=== PATIENT | female | born 1995 | race Caucasian/White ===

== ENCOUNTER 2019-07-28 23:14 | Emergency (ER) | payer OTHER ==
[2019-07-29] MEDS: Ketorolac 30 MG/ML SDV IM ONE (01:25)
[2019-07-29] MEDS: Diazepam 5 MG Tab PO ONE (01:26)
--- NOTE | 2019-07-29 03:28 | EDM.PDOC ---
ED HPI GENERAL MEDICAL PROBLEM - General Chief Complaint: General Stated Complaint: PAIN IN SI JOINTS Time Seen by Provider: 07/29/19 01:12 Source of Information: Reports: Patient, Correction Records History Limitations: Reports: No Limitations - History of Present Illness INITIAL COMMENTS - FREE TEXT/NARRATIVE: This 23-year-old female presents to the emergency room with a chief complaint of pain in her SI joint. Patient has had pain for a few days and is in severe pain at this time. Onset: Gradual Duration: Day(s):, Getting Worse Location: Reports: Back Severity: Moderate Improves with: Reports: None Worsens with: Reports: None Associated Symptoms: Reports: No Other Symptoms Generalized Pain Score (Numeric/FACES): 8 - Related Data Allergies Allergy/AdvReac Type Severity Reaction Status Date / Time sulfamethoxazole Allergy Hives Verified 07/28/19 23:29 [From Bactrim] trimethoprim [From Bactrim] Allergy Hives Verified 07/28/19 23:29 Home Meds: Home Meds Diclofen Sod/Kinesiology Tape [Diclo Gel 1%-Xrylix Sheet Kit] 1 each TP ASDIRECTED 07/28/19 [History] Methocarbamol 750 mg PO TID 07/28/19 [History] Past Medical History Cardiovascular History: Reports: None Respiratory History: Reports: None Gastrointestinal History: Reports: None Genitourinary History: Reports: None 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 Neurological History: Reports: None Psychiatric History: Reports: None Endocrine/Metabolic History: Reports: None Hematologic History: Reports: None Immunologic History: Reports: None Oncologic (Cancer) History: Reports: None Dermatologic History: Reports: None - Past Surgical History Head Surgeries/Procedures: Reports: None HEENT Surgical History: Reports: Oral Surgery Other HEENT Surgeries/Procedures: wisdom teeth Other Musculoskeletal Surgeries/Procedures:: SI joint Social & Family History - Tobacco Use Smoking Status *Q: Never Smoker Second Hand Smoke Exposure: No - Caffeine Use Caffeine Use: Reports: None - Recreational Drug Use Recreational Drug Use: No ED ROS GENERAL - Review of Systems Review Of Systems: Comprehensive ROS is negative, except as noted in HPI. Constitutional: Reports: No Symptoms HEENT: Reports: No Symptoms Respiratory: Reports: No Symptoms Cardiovascular: Reports: No Symptoms Endocrine: Reports: No Symptoms GI/Abdominal: Reports: No Symptoms : Reports: No Symptoms Musculoskeletal: Reports: Muscle Pain Skin: Reports: No Symptoms Neurological: Reports: No Symptoms Psychiatric: Reports: No Symptoms Hematologic/Lymphatic: Reports: No Symptoms Immunologic: Reports: No Symptoms ED EXAM, GENERAL - Physical Exam Exam: See Below Free Text/Narrative:: sHe has point tenderness no signs of redness or infection Exam Limited By: No Limitations General Appearance: Alert, WD/WN, No Apparent Distress Ears: Normal Canal, Hearing Grossly Normal, Normal TMs Nose: Normal Inspection, Normal Mucosa, No Blood Throat/Mouth: Normal Inspection, Normal Lips, Normal Teeth, Normal Gums, Normal Oropharynx, Normal Voice Head: Atraumatic, Normocephalic Neck: Normal Inspection, Supple, Non-Tender, Full Range of Motion Respiratory/Chest: No Respiratory Distress, Lungs Clear, Normal Breath Sounds, No Accessory Muscle Use, Chest Non-Tender Cardiovascular: Normal Peripheral Pulses, Regular Rate, Rhythm, No Edema, No Gallop, No JVD, No Murmur, No Rub GI/Abdominal: Normal Bowel Sounds, Soft (Female) Exam: Deferred Rectal (Female) Exam: Deferred Back Exam: Normal Inspection, Decreased Range of Motion, Muscle Spasm, Paraspinal Tenderness, Vertebral Tenderness Extremities: Normal Inspection, Normal Range of Motion, Non-Tender, No Pedal Edema Neurological: Alert, Oriented, CN II-XII Intact, Normal Cognition, Normal Gait, Normal Reflexes Psychiatric: Normal Affect, Normal Mood Skin Exam: Warm, Dry, Intact, Normal Color, No Rash Lymphatic: No Adenopathy Course - Vital Signs Last Recorded V/S: Last Vital Signs Temp 97.8 F 07/28/19 23:24 Pulse 94 07/28/19 23:24 Resp 20 07/28/19 23:24 BP 151/71 H 07/28/19 23:24 Pulse Ox 98 07/28/19 23:24 - Orders/Labs/Meds Meds: Medications Discontinued Medications Generic Name Dose Route Start Last Admin Trade Name Adithyaq PRN Reason Stop Dose Admin Diazepam 10 mg 07/29/19 01:16 07/29/19 01:26 Valium. PO 07/29/19 01:17 10 mg ONETIME ONE Administration Ketorolac Tromethamine 30 mg 07/29/19 01:16 07/29/19 01:25 Toradol IM 07/29/19 01:17 30 mg ONETIME ONE Administration Departure - Departure Time of Disposition: 03:29 Disposition: Home, Self-Care 01 Condition: Good Clinical Impression: Back pain - Discharge Information Instructions: Radicular Pain Referrals: Adán Montanez DO [Primary Care Provider] - Forms: ED Department Discharge Sepsis Event Note - Evaluation Sepsis Screening Result: No Definite Risk - Focused Exam Vital Signs: Vital Signs Temp Pulse Resp BP Pulse Ox 07/28/19 23:24 97.8 F 94 20 151/71 H 98 Date Exam was Performed: 07/29/19 Time Exam was Performed: 03:29
== END 2019-07-29 03:40 | disposition home or self-care (01) ==
LOC: MW.ED 23:14
DX: M53.3 Sacrococcygeal disorders, not elsewhere classified (principal); Z88.2 Allergy status to sulfonamides; Z88.1 Allergy status to other antibiotic agents
CPT/HCPCS: 96372; 99283; A9270; J1885; 99282

== ENCOUNTER 2019-08-13 10:41 | Day surgery (SDC) | payer BC, OTHER ==
[~2019-08-13 10:41] MED LIST: Betamethasone Acetate/Betamethasone Sod Phosphate 30 MG/5 ML MDV EPIDUR ONE; Iopamidol 200-M 10 ML vial ITHECAL ONE; Lidocaine 2% 5 ML SDV INJECT ONE; Ropivacaine 0.5% 5 MG/ML 30 ML SDV INJECT ONE
--- NOTE | 2019-08-13 19:32 | OR ---
SURGEON: Aracely Nieves D.O. DATE OF PROCEDURE: 08/13/2019 PRIMARY SURGEON: Aracely Nieves D.O. SAP PORTAL DEVELOPER: OR staff present: 1. Shana Huertas RN. 2. Marilia Morillo RN. 3. RT Simona. WOUND CLASS: I. PREOPERATIVE DIAGNOSES: 1. Bilateral sacroiliac joint arthropathy. 2. Bilateral sacroiliac joint dysfunction. POSTOPERATIVE DIAGNOSES: 1. Bilateral sacroiliac joint arthropathy. 2. Bilateral sacroiliac joint dysfunction. PROCEDURE PERFORMED: 1. Right sacroiliac joint injection. 2. Left sacroiliac joint injection. 3. Fluoroscopic guidance for needle placement. 4. Local with oral Valium for sedation. SCREENING QUESTIONS: The patient answered "No" to all the followin. Are you allergic to iodine, Betadine or latex? 2. Do you have a bleeding disorder? 3. Do you have any joint replacements, heart valve replacements or a pacemaker? 4. Are you on any anti-inflammatories or blood thinners? 5. Do you have any current local or systemic infections? MEDICAL NECESSITY: This is a patient with a history of severe chronic low back pain and sacroiliac joint irritation with pain over the sacral sulcus and the buttocks region who comes in for the above diagnostic and therapeutic procedure. Please see medical necessity note attached. This procedure is being done in accordance with guidelines as written by the [employer] (HARI). DESCRIPTION OF PROCEDURE: The patient had the procedure thoroughly explained including all possible risks, benefits and alternatives. Consent was signed in my clinic indicating understanding and willingness to proceed. The patient presented to the outpatient Surgery Center and was escorted to the dressing room to disrobe and change into a hospital gown. Preoperative vital signs were taken and stable. The patient reported that Valium was taken prior to the procedure. The patient was brought to the procedure room and placed in the prone position on the procedure room table. A pillow was placed under the hips in order to flatten the lumbar lordosis. The back was prepped with ChloraPrep and sterilely draped. All personnel in the operating room were dressed in appropriate attire including surgical scrubs, head and shoe covers. This was to ensure sterility while in the treatment room. During the time fluoroscopy was in use all personnel in the operating room wore lead ragsdale with thyroid collars. Sterile technique was used during the procedure. The patient was awake and conversant throughout the procedure. The fluoroscope was positioned to provide an oblique view of the left sacroiliac joint. There was no evidence of infection at the site of needle insertion. The skin was anesthetized with 2% Lidocaine with a sterile 27-gauge 1.5 inch needle. Then under fluoroscopy a 22-gauge 3.5 inch spinal needle was placed within the sacroiliac joint in the lower one-third of the joint. IsoVue-200 contrast dye was injected under live fluoroscopy and no intravascular flow pattern was observed. After negative aspiration of heme, the following solution was injected: 0.5% Ropivacaine, Celestone and 2% Lidocaine. The procedure was then repeated as above for the right sacroiliac joint injection The patient tolerated the procedures well and vital signs were stable during and after the procedure. The staff escorted the patient to the recovery area and the patient was released to home in stable condition after a brief stay in the recovery room monitored by the nurse. The patient was given both oral and written discharge and follow up instructions. Recommended follow up in two weeks. The patient is able to contact the office if there are any additional problems or questions in the meantime. The patient was given discharge instruction and verbalizes understanding including understanding of those signs and symptoms that would require emergency care. PREOPERATIVE PAIN: 8/10. POSTOPERATIVE PAIN: 2/10. FOLLOWUP: Follow up in the Pain Clinic in 3 to 4 weeks. HOGCHARLIE / LORENA /[id number]
== END 2019-08-13 13:00 | disposition home or self-care (01) ==
LOC: MW.SDS 10:41
PROVIDERS: ATTEND Anesthesiology
DX: M47.818 Spondylosis without myelopathy or radiculopathy, sacral and sacrococcygeal region (principal); M53.3 Sacrococcygeal disorders, not elsewhere classified; G89.29 Other chronic pain; M54.9 Dorsalgia, unspecified; M54.6 Pain in thoracic spine; M79.18 Myalgia, other site; G47.33 Obstructive sleep apnea (adult) (pediatric); F41.9 Anxiety disorder, unspecified; E66.01 Morbid (severe) obesity due to excess calories; Z68.43 Body mass index [BMI] 50.0-59.9, adult; Z91.040 Latex allergy status; Z88.8 Allergy status to other drugs, medicaments and biological substances
CPT/HCPCS: 27096; J0702; G0260

== ENCOUNTER 2021-05-20 06:23 | Day surgery (SDC) | payer BC ==
[~2021-05-20 06:23] MED LIST changes: -Betamethasone Acetate/Betamethasone Sod Phosphate 30 MG/5 ML MDV EPIDUR ONE; -Iopamidol 200-M 10 ML vial ITHECAL ONE; +Lactated Ringers 1,000 ML IV SCH; -Lidocaine 2% 5 ML SDV INJECT ONE; -Ropivacaine 0.5% 5 MG/ML 30 ML SDV INJECT ONE; +Sodium Chloride 0.9% 10 ML SDV IV PRN; +Sodium Chloride 0.9% 10 ML Syringe FLUSH PRN; +Sodium Chloride 0.9% 2.5 ML Syringe FLUSH PRN; +ceFAZolin 2 GM in Premix Bag 1 BAG IV ONE
[2021-05-20] MEDS ORDERED: Scopolamine 1.5 MG Transdermal Patch ONE (07:07)
[2021-05-20] MEDS ORDERED: Metoclopramide 10 MG/2 ML SDV IVPUSH PRN (07:18)
[2021-05-20] MEDS ORDERED: Albuterol 0.083% 2.5 MG/3 ML Neb Soln NEB PRN (07:18)
[2021-05-20] MEDS ORDERED: HYDROmorphone 1 MG/ML Syringe IVPUSH PRN (07:18)
[2021-05-20] MEDS ORDERED: fentaNYL 100 MCG/2 ML SDV IVPUSH PRN (07:18)
[2021-05-20] MEDS ORDERED: Naloxone 0.4 MG/ML SDV IVPUSH PRN (07:18)
[2021-05-20] MEDS ORDERED: Ondansetron 4 MG/2 ML SDV IVPUSH PRN (07:18)
[2021-05-20] MEDS ORDERED: Morphine 2 MG/ML SYRINGE IVPUSH PRN (07:18)
--- NOTE | 2021-05-20 07:20 | PCM.PREANE ---
Preanesthetic Assessment - Anesthesia/Transfusion/Family Hx Anesthesia History: Prior Anesthesia Without Reaction Other Type of Anesthesia Reaction Comment: states after one of my c/sections, the epidural wore off quickly Family History of Anesthesia Reaction: No Transfusion History: No Prior Transfusion(s) - Review of Systems General: No Symptoms Pulmonary: No Symptoms Cardiovascular: No Symptoms Gastrointestinal: No Symptoms Neurological: No Symptoms Other: Reports: None, Anxiety - Physical Assessment NPO Status Date: 05/20/21 NPO Status Time: 00:00 Vital Signs: Last Vital Signs Temp 98.1 F 05/20/21 06:35 Pulse 72 05/20/21 06:35 Resp 16 05/20/21 06:35 BP 112/65 05/20/21 06:35 Pulse Ox 99 05/20/21 06:35 Height: 5 ft 6 in Weight: 174 lb ASA Class: 2 Mental Status: Alert & Oriented x3 Airway Class: Mallampati = 2 Dentition: Reports: Normal Dentition Thyro-Mental Finger Breadths: 3 Mouth Opening Finger Breadths: 3 ROM/Head Extension: Full Lungs: Clear to Auscultation, Normal Respiratory Effort Cardiovascular: Regular Rate, Regular Rhythm - Lab Values: Laboratory Last Values Urine HCG, Qual NEGATIVE (NEGATIVE) 05/20/21 06:35 - Allergies Allergies/Adverse Reactions: Allergies Allergy/AdvReac Type Severity Reaction Status Date / Time latex Allergy reddness, Verified 05/14/21 10:57 couldnt take deep breath sulfamethoxazole Allergy Rash Verified 05/14/21 10:57 [From Bactrim] trimethoprim [From Bactrim] Allergy Rash Verified 05/14/21 10:57 - Acknowledgements Anesthesia Type Planned: General Anesthesia Pt an Appropriate Candidate for the Planned Anesthesia: Yes Alternatives and Risks of Anesthesia Discussed w Pt/Guardian: Yes Pt/Guardian Understands and Agrees with Anesthesia Plan: Yes PreAnesthesia Questionnaire HEENT History: Reports: None Cardiovascular History: Reports: None Respiratory History: Reports: Other (See Below) Other Respiratory History: sleep apnea in the past, not since weight loss Gastrointestinal History: Reports: Celiac Disease, GERD Other Gastrointestinal History: hx pilonidal cyst, fatty liver in the past Genitourinary History: Reports: None 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: Musculoskeletal History: Reports: Back Pain, Chronic, Fracture, Neck Pain, Chronic Other Musculoskeletal History: hx fx tailbone Neurological History: Reports: Other (See Below) Other Neuro History: "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" Psychiatric History: Reports: Anxiety, Depression Endocrine/Metabolic History: Reports: None Hematologic History: Reports: None Immunologic History: Reports: None Oncologic (Cancer) History: Reports: None Dermatologic History: Reports: Eczema - Past Surgical History Head Surgeries/Procedures: Reports: None HEENT Surgical History: Reports: Oral Surgery Other HEENT Surgeries/Procedures: wisdom teeth Cardiovascular Surgical History: Reports: None Respiratory Surgical History: Reports: None GI Surgical History: Reports: Bariatric Procedure Other GI Surgeries/Procedures: gastric sleeve Female Surgical History: Reports: Section, Other (See Below) Other Female Surgeries/Procedures: c/section x2, I&D rt axilla abscess Endocrine Surgical History: Reports: None Neurological Surgical History: Reports: None Musculoskeletal Surgical History: Reports: None Oncologic Surgical History: Reports: None Dermatological Surgical History: Reports: None - SUBSTANCE USE Tobacco Use Status *Q: Never Tobacco User - HOME MEDS Home Medications: Home Meds Inulin/Chromium Picolinate [Fiber Gummies] 1 tab PO DAILY 05/14/21 [History] Multivit-Min/Folic Acid/Biotin [Hair, Skin and Nails Caplet] 1 tab PO DAILY 05/14/21 [History] Pantoprazole Sodium [Protonix] 40 mg PO DAILY 05/14/21 [History] - CURRENT (IN HOUSE) MEDS Current Meds: Current Medications Lactated Ringer's (Ringers, Lactated) 1,000 mls @ 125 mls/hr IV ASDIRECTED DANIELITO Last Admin: 05/20/21 07:01 Dose: 125 mls/hr Documented by: Sodium Chloride (Sodium Chloride 0.9% 2.5 Ml Syringe) 2.5 ml FLUSH ASDIRECTED PRN PRN Reason: Keep Vein Open Sodium Chloride (Sodium Chloride 0.9% 10 Ml Sdv) 10 ml IV ASDIRECTED PRN PRN Reason: IV Use Sodium Chloride (Sodium Chloride 0.9% 10 Ml Syringe) 10 ml FLUSH ASDIRECTED PRN PRN Reason: Keep Vein Open Discontinued Medications Cefazolin Sodium/Dextrose 2 gm (/ Premix) 50 mls @ 100 mls/hr IV ONETIME ONE Stop: 05/17/21 09:41 Scopolamine (Scopolamine 1.5 Mg Transdermal Patch) Confirm Administered Dose 1.5 mg .ROUTE .STK-MED ONE Stop: 05/20/21 07:08
[2021-05-20] MEDS ORDERED: Bupivacaine 0.5% 30 ML SDV ONE (07:23)
[2021-05-20] MEDS ORDERED: Lidocaine 2% Jelly 30 ML Tube ONE (07:24)
[2021-05-20] MEDS ORDERED: fentaNYL 100 MCG/2 ML SDV ONE (07:33)
[2021-05-20] MEDS ORDERED: Propofol 200 MG/20 ML SDV ONE (07:33)
[2021-05-20] MEDS ORDERED: Bupivacaine Liposome 1.3% 20 ML SDV ONE (07:33)
[2021-05-20] MEDS ORDERED: Midazolam 1 MG/ML 2 ML SDV ONE (07:33)
[2021-05-20] MEDS ORDERED: Dexmedetomidine 200 MCG/2 ML SDV ONE (09:15)
[2021-05-20] MEDS ORDERED: ePHEDrine 50 MG/ML SDV ONE (09:28)
[2021-05-20] MEDS ORDERED: Ketorolac 30 MG/ML SDV ONE (09:28)
[2021-05-20] MEDS ORDERED: Ondansetron 4 MG/2 ML SDV ONE (09:28)
[2021-05-20] MEDS ORDERED: Dexamethasone 4 MG/ML 5 ML MDV ONE (09:30)
--- NOTE | 2021-05-20 09:56 | PCM.OPNOTE ---
- General Post-Op/Procedure Note Date of Surgery/Procedure: 05/20/21 Operative Procedure(s): Hemorrhoidectomy Findings: 3 column hemorrhoidectomy; left lateral left posterior right anterior Pre Op Diagnosis: Hemorrhoid grade IV Post-Op Diagnosis: same Anesthesia Technique: General LMA, Local Primary Surgeon: Doretha Barron Fluid Replacement, Intraop: 600 EBL in mLs: 5 Condition: Good
--- NOTE | 2021-05-20 10:04 | PCM48HPAN ---
Post Anesthesia Note - EVALUATION WITHIN 48HRS OF ANESTHETIC Vital Signs in Normal Range: Yes Patient Participated in Evaluation: Yes Respiratory Function Stable: Yes Airway Patent: Yes Cardiovascular Function Stable: Yes Hydration Status Stable: Yes Pain Control Satisfactory: Yes Nausea and Vomiting Control Satisfactory: Yes Mental Status Recovered: Yes Vital Signs: Last Vital Signs Temp 98.1 F 05/20/21 06:35 Pulse 72 05/20/21 06:35 Resp 16 05/20/21 06:35 BP 112/65 05/20/21 06:35 Pulse Ox 99 05/20/21 06:35
--- NOTE | 2021-05-20 10:04 | PCM.POSTAN ---
POST ANESTHESIA ASSESSMENT - MENTAL STATUS Mental Status: Alert, Oriented - VITAL SIGNS Vital Signs: Last Vital Signs Temp 98.1 F 05/20/21 06:35 Pulse 72 05/20/21 06:35 Resp 16 05/20/21 06:35 BP 112/65 05/20/21 06:35 Pulse Ox 99 05/20/21 06:35 - RESPIRATORY Respiratory Status: Respiratory Rate WNL, Airway Patent, O2 Saturation Stable - CARDIOVASCULAR CV Status: Pulse Rate WNL, Blood Pressure Stable - GASTROINTESTINAL GI Status: No Symptoms - POST OP HYDRATION Hydration Status: Adequate & Stable
[2021-05-20] MEDS ORDERED: Acetaminophen/oxyCODONE 325-5 MG Tab PO ONE (10:59)
--- NOTE | 2021-05-20 12:18 | OR ---
SURGEON: DORETHA BARRON MD DATE OF PROCEDURE: 05/20/2021 PREOPERATIVE DIAGNOSIS: Grade 4 hemorrhoids x3. POSTOPERATIVE DIAGNOSIS: Grade 4 hemorrhoids x3. PROCEDURE PERFORMED: Three-column hemorrhoidectomy. PRIMARY SURGEON: Doretha Barron MD ANESTHESIA: General LMA, local. FLUIDS: 600 mL crystalloid. ESTIMATED BLOOD LOSS: 5 mL. FINDINGS: Grade 4 prolapsing left lateral, left posterior, and right anterior hemorrhoids. COMPLICATIONS: None. INDICATIONS: The patient is a 25-year-old female who presented to my clinic with grade 4 hemorrhoids. On physical exam, she had three-column hemorrhoidal disease. Despite conservative measures, the patient was having trouble keeping herself clean and the hemorrhoid tissue was quite large. The decision was made to proceed to the operating room to perform a three-column hemorrhoidectomy. I explained the procedure to the patient, the expected perioperative course, the postoperative care required, and the risks including bleeding, infection, or damage to surrounding structures which could alter continence. She verbalized understanding and wishes to proceed. PROCEDURE IN DETAIL: The patient was brought in to the OR and placed on the OR cart in a left lateral decubitus position. A time-out was completed verifying the patient's name, age, date of , allergies, and procedure to be performed. General LMA anesthesia was induced. The buttocks and anus were then prepped and draped in usual standard fashion. A digital rectal exam was performed. The patient was noted to have grade 4 hemorrhoids in the right anterior, left lateral, and left posterior areas of the anoderm. I anesthetized the anoderm circumferentially with 0.5% Marcaine plain. An anal retractor was put in place. I grasped the left lateral hemorrhoid with a Soledad. Using needle-tip cautery, I excised this hemorrhoid. I then closed the tissue with a running locking stitch in the anal canal, transitioned to a simple stitch on the anoderm, and then stitched back upon itself so that the knot would be within the anal canal. I then turned my attention to the left posterior hemorrhoidal column. This was excised in a similar fashion. I then turned my attention to the right anterior hemorrhoidal column. This was removed in the same fashion as well. I inspected my suture lines. They appeared to be hemostatic. The patient did have a grade 2 right posterior hemorrhoid, however, this was small. It did not appear to need excision. Once I had ensured hemostasis, I injected more Exparel into the tissue around the anoderm and performed nerve blocks on either side. 4 x 4 fluffs and mesh underwear were then applied. The patient tolerated the procedure well, was extubated, and taken to the PACU in stable condition. All counts were complete and correct at the end of the case. LEANNE CARRILLO /[id number]
== END 2021-05-20 11:10 | disposition home or self-care (01) ==
LOC: MW.SDS 06:23
PROVIDERS: ATTEND Surgery
DX: K64.3 Fourth degree hemorrhoids (principal); F41.9 Anxiety disorder, unspecified; G47.33 Obstructive sleep apnea (adult) (pediatric); L98.7 Excessive and redundant skin and subcutaneous tissue; Z88.2 Allergy status to sulfonamides; Z88.1 Allergy status to other antibiotic agents; Z91.040 Latex allergy status; Z79.899 Other long term (current) drug therapy; Z98.84 Bariatric surgery status; Z98.890 Other specified postprocedural states
CPT/HCPCS: 46260; 81025; 88304; A9270; J0131; J1100; J1170; J1885; J2250; J2405; J2704; J3010; J7120; 00902; J3490

== ENCOUNTER 2021-06-21 10:22 | Emergency (ER) | payer BC | END 2021-06-21 10:39 | disposition left against medical advice (07) | LOC: MW.ED 10:22 | DX: Z53.21 Procedure and treatment not carried out due to patient leaving prior to being seen by health care provider (principal) ==